=== PATIENT | female | born 1990 | race Caucasian/White ===

== ENCOUNTER 2019-06-09 16:55 | Emergency (ER) | payer SELFPAY ==
[~2019-06-09] VITALS: Ht 157.5 cm; Wt 47.5 kg
[2019-06-09 17:05] VITALS: BP 118/90
--- NOTE | 2019-06-09 17:12 | NUR ---
PT HERE AFTER GETTING BLOOD ON HANDS, STATES SHE HAS A KITTEN AND HAS "SMALL SCRATCHES ALL OVER, CAN FEEL THEM STING WHEN I USE HAND CLOUD ENGAGEMENT PARTNER."
--- NOTE | 2019-06-09 17:49 | NUR ---
Patient/Caregiver given discharge instructions and they have confirmed that they understand the instructions. Patient ambulatory with steady gait.
== END 2019-06-09 17:51 | disposition home or self-care (01) ==
LOC: ED 17:45
DX: S60.512A Abrasion of left hand, initial encounter (principal); S60.511A Abrasion of right hand, initial encounter; X58.XXXA Exposure to other specified factors, initial encounter; Y93.89 Activity, other specified; Y92.89 Other specified places as the place of occurrence of the external cause; Y99.8 Other external cause status
CPT/HCPCS: 99281